=== PATIENT | male | born 1980 | race Hispanic/Latino ===

== ENCOUNTER 2017-01-07 09:52 | Day surgery (SDC) | payer MEDICAID ==
[2017-01-07] MEDS ORDERED: ANCEF/STERILE WATER 2 GM/20 ML IV NR (10:45)
[2017-01-07] MEDS ORDERED: NACL BACTERIOSTATIC INFILTRATI ONE (11:36)
--- NOTE | 2017-01-07 12:03 | Anesthesia Consultation ---
Anesthesia Consult and Med Hx - Airway Anesthetic Teeth Evaluation: Good ROM Head & Neck: Adequate Mental/Hyoid Distance: Inadequate Mallampati Class: Class III Intubation Access Assessment: Possibly Difficult - Pulmonary Exam CTA: Yes - Cardiac Exam Cardiac Exam: RRR - Pre-Operative Health Status ASA Pre-Surgery Classification: ASA3 Proposed Anesthetic Plan: General (GA no previous problems; ) - Pulmonary Hx Smoking: No Hx Sleep Apnea: No (SERGO PRE SCREEN HIGH RISK) - Cardiovascular System Hx Hypertension: No - Central Nervous System Hx Back Pain: Yes (FROM KIDNEY STONE) Hx Psychiatric Problems: Yes (autism; obsessive compulsive; migraines) - Other Systems Hx Cancer: No
--- NOTE | 2017-01-07 12:04 | Anesthesia Day of Surgery ---
Anesthesia Day of Surgery - Day of Surgery Patient Examined: Yes Patient H&P Reviewed: Yes Patient is NPO: Yes
[2017-01-07] MEDS ORDERED: PEPCID IV NR (12:08)
[2017-01-07] MEDS ORDERED: NACL 0.9% 1000 ML 1,000 ML IV SCH (12:08)
[2017-01-07] MEDS: VERSED IV NR ×2 (12:22→14:12)
[2017-01-07] MEDS ORDERED: DIPRIVAN 10 MG/ML IV ONE (13:25)
[2017-01-07] MEDS ORDERED: XYLOCAINE MPF 2% ONE (13:26)
[2017-01-07] MEDS ORDERED: DILAUDID ONE (13:26)
[2017-01-07] MEDS ORDERED: WATER FOR IRRIG STERILE IR ONE ×2 (14:11)
[2017-01-07] MEDS ORDERED: TORADOL ONE (14:45)
[2017-01-07] MEDS ORDERED: ZOFRAN ONE (14:45)
--- NOTE | 2017-01-07 15:50 | Short Stay Summary ---
Short Stay Documentation Date of service: 01/07/17 - History H&P: obtained from office - Allergies and Medications Current Medications: Allergies morphine Allergy (Verified 01/05/17 14:07) Headache tamsulosin HCl [From Flomax] Allergy (Verified 01/05/17 14:07) Swelling SWELLING OF FACE AND THROAT Home Medications Medication Instructions Recorded Confirmed Last Taken Type Oxycodone HCl/Acetaminophen 1 each PO Q4-6H PRN #20 tablet 02/03/15 01/07/1703/20 05:00 Rx [Percocet 10-325 mg] Cephalexin [Keflex] 500 mg PO Q6HR 01/05/17 01/07/17 01/06/17 History Ibuprofen [Motrin] 600 mg PO Q8H PRN 01/05/17 01/07/17 01/04/17 History Ondansetron [Zofran TAB] 4 mg PO PRN PRN 01/05/17 01/07/17 01/07/17 05:00 History Active Medications Cefazolin Sodium (Ancef/Sterile Water 2 Gm/20 Ml) 2 gm IV PREOP NR Stop: 01/07/17 23:59 Famotidine (Pepcid) 20 mg IV PREOP NR Stop: 01/07/17 23:59 Last Admin: 01/07/17 12:19 Dose: 20 mg Sodium Chloride (Nacl 0.9% 1000 Ml) 1,000 mls @ 100 mls/hr IV DIRECT LESLEE Stop: 01/07/17 23:59 Last Admin: 01/07/17 12:18 Dose: 100 mls/hr - Brief post op/procedure progress note Date of procedure: 01/07/17 Pre-op diagnosis: rimmght renal ston 10 Post-op diagnosis: same Procedure: cysto righ t 6x28 stent; right eswl Anesthesia: GETA Findings: good vis pushed back w/ stebt ti lp Surgeon: FABIANA MEDINA Estimated blood loss: minimal Pathology: none Specimen disposition: to lab Condition: stable - Hospital course Hospital course: or pacu home - Disposition Condition at discharge: Good Disposition: DISCHARGED TO HOME OR SELFCARE Short Stay Discharge Plan Activity: advance as tolerated Diet: advance as tolerated Follow up with: FABIANA MEDINA MD [Staff Physician] - 7 Days
--- NOTE | 2017-01-07 16:06 | Post Anesthesia Evaluation ---
- Post Anesthesia Evaluation Patient Participated: Yes Airway Patent: Yes Stable Respiratory Function: Yes Temp > 96.8F: Yes Pain Manageable: Yes Adequeate Hydration: Yes Anesthesia Complications: No Block Receding Appropriately: Not Applicable
[2017-01-07 16:47] VITALS: BP 149/74
--- NOTE | 2017-01-11 09:39 | Operative Report ---
PREOPERATIVE DIAGNOSIS: Right renal pelvis ureteropelvic junction stone approximately 10 mm. POSTOPERATIVE DIAGNOSIS: Right renal pelvis Ureteropelvic junction stone approximately 10 mm. PROCEDURE: Cystoscopy, right stent placement, and right renal ESWL. SURGEON: Yimi Rasheed MD. ANESTHESIA: General. SPECIMENS: None. ESTIMATED BLOOD LOSS: Minimal. COMPLICATIONS: None. FINDINGS: Good visualization of the stone. Mild decrease in density at the end of the procedure. CLINICAL INDICATIONS: The patient and family have been counseled by his primary urologist and questions answered by me on options for treatment. Additionally, counseled on monitoring the patient afterwards. The patient with a history autism. The patient saw mother and stated she is a nurse and RN. Discussed what is autism and monitoring him closely afterwards every 2 to 3 hours checking for temperature and any vitals or abnormalities she can call us immediately and follow up to the Emergency Room as needed for any fevers or any other vitals and abnormalities. She understood following up for the stent removal or additional procedures. DESCRIPTION OF PROCEDURE: The patient had antibiotics, SCDs, and was transferred to OR suite in supine position, anesthesia, dorsal lithotomy position, prepped and draped in standard fashion. At this point, a 22-Slovenian scope was passed. Cystoscopy demonstrated no tumors or lesions. Right stent was visualized. We only injected slight amount of contrast just up into the stone confirmed position right at the UPJ renal pelvis stone. Glidewire passed. Drainage noted from the right kidney with no significant signs of infection. No purulence. No significant debris. Appeared to be clear drainage from the right kidney. A 6 x 28 double-J stent was then passed over the wire under direct and fluoroscopic visualization. When the wire and string was removed, nice proximal and distal J. The stone was visualized and at this point, the patient was placed in the supine position. We began our shockwaves; total of 2500 shocks were delivered. This was done at 4.0 kilovolts for the majority of the procedure. Only towards the end, shocks were increased for about 100-200 shocks at 5.0 kilovolts, but the stone appeared ____ at that point and then was reduced immediately back to 4.0 kilovolts. A total of 2500 shocks. At the end of the procedure, there was moderate decreased density. The patient was awakened and transferred to the PACU in good and stable condition. PLAN: Stage future stent removal and possible future additional treatment for the stone. JOB# [id number] ATS/CIARA
== END 2017-01-07 18:01 | disposition home or self-care (01) ==
LOC: OR 09:52
PROVIDERS: ATTEND Urology
DX: N20.0 Calculus of kidney (principal); F84.0 Autistic disorder; F42.9 Obsessive-compulsive disorder, unspecified; M41.9 Scoliosis, unspecified; G43.909 Migraine, unspecified, not intractable, without status migrainosus; Z83.3 Family history of diabetes mellitus; Z82.3 Family history of stroke; Z82.0 Family history of epilepsy and other diseases of the nervous system; Z82.49 Family history of ischemic heart disease and other diseases of the circulatory system; Z83.49 Family history of other endocrine, nutritional and metabolic diseases; Z84.1 Family history of disorders of kidney and ureter; Z82.69 Family history of other diseases of the musculoskeletal system and connective tissue; Z80.0 Family history of malignant neoplasm of digestive organs; Z80.42 Family history of malignant neoplasm of prostate; Z84.2 Family history of other diseases of the genitourinary system
CPT/HCPCS: 50590; 52332; A4217; C1758; C1769; C2617; J0690; J1170; J1885; J2250; J2405; J2704; J7030

== ENCOUNTER 2017-02-04 07:47 | Day surgery (SDC) | payer MEDICAID ==
[2017-02-04] MEDS ORDERED: ANCEF/STERILE WATER 2 GM/20 ML IV NR (09:00)
[2017-02-04] MEDS ORDERED: DECADRON ONE (09:05)
[2017-02-04] MEDS ORDERED: XYLOCAINE MPF 2% ONE (09:05)
[2017-02-04] MEDS ORDERED: NACL BACTERIOSTATIC INFILTRATI ONE (09:05)
[2017-02-04] MEDS ORDERED: DIPRIVAN 10 MG/ML IV ONE (09:06)
[2017-02-04] MEDS ORDERED: SUBLIMAZE ONE (09:06)
--- NOTE | 2017-02-04 09:11 | Anesthesia Day of Surgery ---
Anesthesia Day of Surgery - Day of Surgery Patient Examined: Yes Patient H&P Reviewed: Yes Patient is NPO: Yes
--- NOTE | 2017-02-04 09:12 | Anesthesia Consultation ---
Anesthesia Consult and Med Hx Date of service: 02/04/17 - Airway Anesthetic Teeth Evaluation: Good ROM Head & Neck: Adequate Mental/Hyoid Distance: Inadequate Mallampati Class: Class IV Intubation Access Assessment: Possibly Difficult - Pulmonary Exam CTA: Yes - Cardiac Exam Cardiac Exam: RRR - Pre-Operative Health Status ASA Pre-Surgery Classification: ASA3 Proposed Anesthetic Plan: General - Pulmonary Hx Smoking: No Hx Sleep Apnea: No (SERGO PRE SCREEN HIGH RISK) - Cardiovascular System Hx Hypertension: No - Central Nervous System Hx Back Pain: Yes (FROM KIDNEY STONE) Hx Psychiatric Problems: Yes (high function autism, OCD, migraines) - Gastrointestinal Hx Gastroesophageal Reflux Disease: No - Endocrine Hx Renal Disease: Yes (kidney cysts and stones) Hx Insulin Dependent Diabetes: No - Hematic Hx Anemia: No Hx Sickle Cell Disease: No - Other Systems Hx Alcohol Use: No Hx Substance Use: No Hx Cancer: No Hx Obesity: Yes
[2017-02-04] MEDS ORDERED: NACL 0.9% 1000 ML 1,000 ML IV SCH (09:24)
[2017-02-04] MEDS ORDERED: PEPCID IV NR (09:25)
[2017-02-04] MEDS ORDERED: VERSED IV NR (09:25)
[2017-02-04] MEDS ORDERED: NEO SYNEPHRINE ONE (09:26)
--- NOTE | 2017-02-04 12:02 | Post Anesthesia Evaluation ---
- Post Anesthesia Evaluation Patient Participated: Yes Airway Patent: Yes Stable Respiratory Function: Yes Nausea/Vomiting: No Temp > 96.8F: Yes Pain Manageable: Yes Adequeate Hydration: Yes Anesthesia Complications: No Block Receding Appropriately: Not Applicable Patient on Ventilator: No
--- NOTE | 2017-02-04 12:19 | Short Stay Summary ---
Short Stay Documentation Date of service: 02/04/17 - History H&P: obtained from office - Allergies and Medications Current Medications: Allergies morphine Allergy (Verified 01/05/17 14:07) Headache tamsulosin HCl [From Flomax] Allergy (Verified 01/05/17 14:07) Swelling SWELLING OF FACE AND THROAT Home Medications Medication Instructions Recorded Confirmed Last Taken Type Oxycodone HCl/Acetaminophen 1 each PO Q4-6H PRN #20 tablet 02/03/15 02/04/1712/18 Rx [Percocet 10-325 mg] Ibuprofen [Motrin] 600 mg PO Q8H PRN 01/05/17 02/04/17 02/01/17 History Ondansetron [Zofran TAB] 4 mg PO PRN PRN 01/05/17 02/04/17 2 Weeks Ago History Active Medications Cefazolin Sodium (Ancef/Sterile Water 2 Gm/20 Ml) 2 gm IV PREOP NR Stop: 02/04/17 18:00 Sodium Chloride (Nacl 0.9% 1000 Ml) 1,000 mls @ 75 mls/hr IV DIRECT LESLEE Last Admin: 02/04/17 09:49 Dose: 75 mls/hr Midazolam HCl (Versed) 2 mg IV PREOP NR Stop: 02/04/17 23:59 Last Admin: 02/04/17 09:49 Dose: 2 mg - Brief post op/procedure progress note Date of procedure: 02/04/17 Pre-op diagnosis: Right renal stone Post-op diagnosis: same Procedure: right renal eswl Anesthesia: GETA Findings: good vis, seperation aft Surgeon: FABIANA MEDINA Estimated blood loss: none Pathology: none Condition: stable - Hospital course Hospital course: or pacu home - Disposition Condition at discharge: Good Disposition: DISCHARGED TO HOME OR SELFCARE Short Stay Discharge Plan Activity: advance as tolerated Follow up with: FABIANA MEDINA MD [Staff Physician] - 7 Days
[2017-02-04] MEDS ORDERED: TYLENOL PO PRN (12:34)
[2017-02-04 13:38] VITALS: BP 132/78
--- NOTE | 2017-02-04 18:22 | Admit Criteria Form ---
Admission Criteria Documentation: AMBULATORY SURGERY EXCEPTION CRITERIA Ambulatory Surgery Exception Criteria ( Place 'X' for any and all applicable criteria): Surgery or procedure performed on ambulatory basis may require inpatient stay for[A] ANY ONE of the following(1)(2)(3)(4)(5)(6)(7)(8)(9): [X] I. A preoperative situation, condition, or finding that warrants inpatient stay as indicated by ANY ONE of the following: [] a) Inpatient care needed because of severity of a disease or condition rather than the surgery (eg, severe cardiac or respiratory disease, severe infection) (15) (16 ) (17) (18) [] b) Emergent procedure (eg, angioplasty for acute ischemia)(19) [] c) Complex surgical approach or situation as indicated by ANY ONE of the following(3): [] i) Open approach needed instead of usual endoscopic, transcatheter, or other less invasive procedure [] ii) Difficult approach because of previous operation [] iii) Airway monitoring required after open neck procedures(20)(21) [] iv) Large mass requiring unusually extensive dissection [] v) Additional complicating feature requiring inpatient care (eg, drain management)(22(23): [X] d) Major surgery in a pt with high anesthetic risk as indicated by ANY ONE of the following (2)(3)(5)(7)(8): [X] i) ASA risk class III or higher (severe systemic disease impairing function) [D] [] ii) Advanced age (eg, older than 85 years)(14)(24) [] iii) Symptomatic heart failure(25) [] iv) Symptomatic asthma or COPD(8)(21) [] v) Morbid obesity with hemodynamic or respiratory problems(20)( 21)(26)(27) [] vi) Obstructive sleep apnea(20)(21) [] vii) Former premature infants who are younger than 60 weeks [] viii) High risk for severe postoperative abnormalities (eg, severe postoperative hypocalcemia after parathyroidectomy for severe hyperparathyroidism)(27)( 28) [] ix) Unstable angina(25) [] e) Drug-related risk requiring inpatient stay as indicated by ANY ONE of the following(5)(10)(14)(32)(33) [] i) Procedure requires discontinuing drugs or other therapy (eg , antiarrhythmic medication, antiseizure medication), which necessitates inpatient observation or treatment.(18)(31) [] ii) Major surgery and high risk drug use as indicated by ANY ONE of the following: [] 1) Active abuse of cocaine or similar drug [] 2) Monoamine oxidase inhibitor use [] 3) Other drug identified as posing risk [] f) Inadequate outpatient care situation as indicated by ANY ONE of the following(5)(10)(14)(32)(33) [] i) Patient lives remote from medical facility and procedure has urgent complication potential, and temporary nearby residence cannot be arranged [] ii) Patient will have postprocedure incapacitation and inadequate assistance at home, or alternative level of care cannot be arranged. [] iii) Patient will have long general anesthesia or procedure side effect resolution time, and competent person to stay with patient on first postoperative night at home or alternative level of care cannot be arranged. []iv) Other inadequate outpatient situation that cannot be handled by other means [] II. A perioperative event, condition, or finding that warrants inpatient stay as indicated by ANY ONE of the following (1)(2)(3): [] a) Inadequate physiologic recovery: cardiovascular, respiratory, or hemodynamic status not normal or near preoperative baseline(18) [] b) Hemodynamic instability [] c) Patient not alert with near normal or baseline mental status [] d) Temperature not normal or as expected and not appropriate for outpatient treatment of condition [] e) Ambulatory or appropriate activity level status not yet achieved post procedure [E](34)(35)(36) [] f) Operative site not appropriate (eg, unexpected or excessive drainage or bleeding) [] g) Postoperative effects not resolved or adequately managed (eg, significant pain or vomiting not appropriate for outpatient or next level of care)(10)(12) [] h) Complicating features requiring inpatient care as indicated by ANY ONE of the following(37): [] i) Severe complications of procedure (eg, bowel injury, airway compromise, vascular injury,severe hemorrhage) [] ii) Extensive (eg, dissection far beyond usual scope of procedure ) or prolonged (eg, 120 minutes beyond usual) surgery needed requiring inpatient postoperative care [] iii) Conversion to an open or complex procedure that requires inpatient care (eg, open vs laparoscopic cholecystectomy, abdominal vs vaginal hysterectomy)(38) [] iv) Comorbid condition or test result identified during or post procedure that requires inpatient care (7) [] v) Malignant hyperthermia(30) [] vi) Other complicating feature requiring inpatient care(22)(23) Inpatient stay may be needed until ALL of the following are present (1)(2)(3)(4) (5)(6)(10)(14)(33)(40): []a) Physiologic recovery: cardiovascular, respiratory, and hemodynamic status normal or near preoperative baseline []b) Hemodynamic stability []c) Patient alert, with near normal or baseline mental status []d) Temperature appropriate: patient afebrile or temperature appropriate for outpt treatment of condition []e) Activity level appropriate: ambulatory or appropriate activity level post procedure []f) Operative site appropriate as indicated by ALL of the following: []i) Site dry or with expected drainage []ii) Any blood noted is as expected for procedure. []g) Postoperative effects resolved or managed as indicated by ALL of the following: []i) Pain management appropriate for outpatient (or next level of) care(10) []ii) Minimal nausea and vomiting: if present, successfully treated with oral medication(12) []iii) Headache, dizziness, or drowsiness (if present) are mild. []h) Voiding status acceptable as indicated by ANY ONE of the following: []i) Voiding spontaneously []ii) No voiding but instructions given for follow-up in 6 to 8 hours []iii) Urinary catheter in place, and instructions given for follow-up []i) Complicating features requiring inpatient care manageable at a lower level of care(37) []j) Comorbid conditions manageable at a lower level of care(37) The original [employer] content created by [employer] has been revised. The portions of the content which have been revised are identified through the use of italic text or in bold, and [facility] [employer] has neither reviewed nor approved the modified material. All other unmodified content is copyright [employer]. Please see references footnoted in the original [employer] edition 2016 Admission Criteria Met: Yes
--- NOTE | 2017-02-07 23:32 | Operative Report ---
PREOPERATIVE DIAGNOSIS: Right renal stones. POSTOPERATIVE DIAGNOSIS: Right renal stones. PROCEDURE: Right renal ESWL. CLINICAL INDICATIONS: The patient has a stent in place. ANESTHESIA: General. FINDINGS: Good visualization of the stone adjacent to the stent and towards lower pole, there was good visualization and separation of stone procedure. SURGEON: Yimi Rasheed MD. ESTIMATED BLOOD LOSS: None. PATHOLOGY: None. CONDITION: Stable. CLINICAL INDICATIONS: Counseled RCBA, antibiotics, SCDs. The patient has a history of having a stent placed and ESWL. The patient is obese, making procedure difficult, I have counseled and wanted to proceed. DESCRIPTION OF PROCEDURE: The patient was transferred to the OR suite in supine position, anesthesia was begun, biplanar fluoroscopy was used to target of the stone with an F2. A total of 2500 shocks were delivered. Intermittent repositioning was done as necessary. At the end of the procedure, there was further spreading and separation of the stone likely fragments. The patient was awakened and transferred to the PACU in good and stable condition. JOB# [id number] ATS/NTS
== END 2017-02-04 13:15 | disposition home or self-care (01) ==
LOC: OR 07:47
PROVIDERS: ATTEND Urology
DX: N20.0 Calculus of kidney (principal); F42.9 Obsessive-compulsive disorder, unspecified; G43.909 Migraine, unspecified, not intractable, without status migrainosus; F84.0 Autistic disorder; E66.9 Obesity, unspecified; Z68.42 Body mass index [BMI] 45.0-49.9, adult; Z79.899 Other long term (current) drug therapy
CPT/HCPCS: 50590; J0690; J1100; J2250; J2590; J2704; J3010; J7030; J2370

== ENCOUNTER 2017-02-17 09:56 | Day surgery (SDC) | payer MEDICAID ==
[~2017-02-17 09:56] MED LIST: WATER FOR IRRIG STERILE IR ONE
--- NOTE | 2017-02-17 12:08 | Anesthesia Consultation ---
Anesthesia Consult and Med Hx Date of service: 02/17/17 - Airway Anesthetic Teeth Evaluation: Good ROM Head & Neck: Adequate Mental/Hyoid Distance: Adequate Mallampati Class: Class II Intubation Access Assessment: Probably Good - Pulmonary Exam CTA: Yes - Cardiac Exam Cardiac Exam: RRR - Pre-Operative Health Status ASA Pre-Surgery Classification: ASA2 Proposed Anesthetic Plan: General - Pulmonary Hx Smoking: No Hx Sleep Apnea: No (SERGO PRE SCREEN HIGH RISK) - Cardiovascular System Hx Hypertension: No - Central Nervous System Hx Back Pain: Yes (FROM KIDNEY STONE) Hx Psychiatric Problems: Yes (high function autism, OCD, migraines) - Gastrointestinal Hx Gastroesophageal Reflux Disease: No - Endocrine Hx Insulin Dependent Diabetes: No - Hematic Hx Anemia: No Hx Sickle Cell Disease: No - Other Systems Hx Alcohol Use: No Hx Substance Use: No Hx Cancer: No Hx Obesity: Yes
--- NOTE | 2017-02-17 12:08 | Anesthesia Day of Surgery ---
Anesthesia Day of Surgery - Day of Surgery Patient Examined: Yes Patient H&P Reviewed: Yes Patient is NPO: Yes
[2017-02-17] MEDS ORDERED: NACL BACTERIOSTATIC INFILTRATI ONE (12:36)
[2017-02-17] MEDS ORDERED: XYLOCAINE MPF 2% ONE (12:57)
[2017-02-17] MEDS ORDERED: SUBLIMAZE ONE ×2 (12:57→14:51)
[2017-02-17] MEDS ORDERED: DIPRIVAN 10 MG/ML IV ONE ×2 (12:57→14:35)
[2017-02-17] MEDS ORDERED: VERSED IV NR (13:00)
[2017-02-17] MEDS ORDERED: LACTATED RINGERS 1,000 ML IV SCH (13:00)
[2017-02-17] MEDS ORDERED: ANCEF/STERILE WATER 2 GM/20 ML IV NR (13:42)
--- NOTE | 2017-02-17 13:48 | Post Operative Note ---
Date of procedure: 02/17/17 Pre-op diagnosis: renal // ureteral stones Post-op diagnosis: same Findings: as above Procedure: cysto rpg stent exchange ureteroscopy laser Anesthesia: VAIBHAVA Surgeon: FRANCISCO TRONCOSO Estimated blood loss: none Pathology: none Condition: stable Disposition: PACU
--- NOTE | 2017-02-17 13:49 | Discharge Summary ---
Short Stay Discharge Plan Activity: other (no straining ) Weight Bearing Status: Full Weight Bearing Diet: low fat, low cholesterol, low salt Special Instructions: other (inc fluids ) Durable Medical Equipment Needed Upon Discharge: other (has stent .. needs f/u) Follow up with: PRIMARY CARE, [Primary Care Provider] - 7 Days FRANCISCO TRONCOSO MD [Staff Physician] - 7 Days
[2017-02-17] MEDS ORDERED: WATER FOR IRRIG STERILE IR ONE (14:09)
[2017-02-17] MEDS ORDERED: OMNIPAQUE 300 MG/50 ML (CATH LAB) IV ONE (14:10)
[2017-02-17] MEDS ORDERED: LASIX ONE (14:37)
[2017-02-17] MEDS ORDERED: ZOFRAN ONE (14:49)
--- NOTE | 2017-02-17 16:22 | Fluoroscopy Report ---
Retrograde pyelogram: The initial noncontrasted image demonstrates a right nephroureteral catheter. There is a question of an opaque density just above the pigtail in the kidney. There is also a focal density overlying the left renal region. The stent was removed with placement of wires and the laser into the renal pelvis. Contrast was injected mildly distended calyces. No filling defects identified. A right nephroureteral stent was left in place.
[2017-02-17 18:16] VITALS: BP 135/84
--- NOTE | 2017-02-17 20:34 | Operative Report ---
PREOPERATIVE DIAGNOSIS: Previous lithotripsy large stone, right upper ureter. POSTOPERATIVE DIAGNOSIS: Significant fragments, impacted in the upper ureter. PROCEDURE: Cystoscopy, right retrograde, insertion of 2 Glidewires, right laser of ureteral stone, followed it into the kidney with nephrostogram and double-J stent. SURGEON: Gregg Landa MD ANESTHESIA: General. FINDINGS: This is a gentleman who is mentally challenged, who had a large stone in the ureter, which was treated with lithotripsy. It was quite small, but this still significant size fragment. The options are removing the stent or trying to laser, we discussed. He now presents for laser. DESCRIPTION OF PROCEDURE: The patient brought to the operating room and placed on the operating table. Following induction of anesthesia, placed in lithotomy position, prepped and draped in usual sterile fashion. Cystourethroscopy showed the stent, which was brought out through the meatus. A wire coiled in the upper pole. Once we got the flexible ureteroscope up to the stone, we saw the stone was embedded it could not be moved. We placed a second wire through it with a double lumen ureteral catheter and flexible ureteroscopy, fragmented the stone into 2 pieces and both pieces were in the kidney. Pieces were in the upper pole. We were able to fragment them even smaller. The patient tolerated the procedure well. A double J 7-Burundian coiled in the kidney and bladder. The patient tolerated the procedure well. No significant complication. Family notified, brought to recovery in stable condition. JOB# [id number] JERRY/CIARA
== END 2017-02-17 16:42 | disposition home or self-care (01) ==
LOC: OR 09:56
PROVIDERS: ATTEND Urology
DX: N20.1 Calculus of ureter (principal); F79 Unspecified intellectual disabilities; F84.0 Autistic disorder; F42.9 Obsessive-compulsive disorder, unspecified; G43.909 Migraine, unspecified, not intractable, without status migrainosus; E66.9 Obesity, unspecified; Z68.41 Body mass index [BMI] 40.0-44.9, adult; Z88.8 Allergy status to other drugs, medicaments and biological substances
CPT/HCPCS: 52356; 74420; A4217; C1726; C1758; C1769; C2617; J0690; J1940; J2250; J2405; J2704; J3010; J7120; Q9967

== ENCOUNTER 2019-04-01 14:10 | Emergency (ER) | payer MEDICAID ==
[2019-04-01 14:56] VITALS: BP 129/79
--- NOTE | 2019-04-01 14:57 | Event Note ---
ED Screening Note Date of service: 04/01/19 Time: 14:54 ED Screening Note: 38 y/o male comes in for side flank pain. History of kidney stone 6 years ago. Having N/V started today. This initial assessment/diagnostic orders/clinical plan/treatment(s) is/are subject to change based on patients health status, clinical progression and re- assessment by fellow clinical providers in the ED. Further treatment and workup at subsequent clinical providers discretion. Patient/guardian urged not to elope from the ED as their condition may be serious if not clinically assessed and managed. Initial orders include:
[2019-04-01 15:48] LABS: Bilirubin,Urine NEG (Negative); Blood,Urine MOD (Negative); Color,Urine Yellow (Yellow); Mucus,Urine FEW /HPF; Protein,Urine <15 mg/dL mg/dL (Negative); Urobilinogen,Urine < 2.0 mg/dL (<2.0); WBC,Urine < 1.0 /HPF (0.0-6.0)
[2019-04-01] MEDS ORDERED: DILAUDID IM ONE (16:24)
[2019-04-01] MEDS ORDERED: ZOFRAN ODT PO ONE (16:24)
[2019-04-01] MEDS ORDERED: TORADOL IM ONE (16:24)
--- NOTE | 2019-04-01 16:30 | Emergency Department Report ---
ED Abdominal Pain HPI - General Chief Complaint: Abdominal Pain Stated Complaint: POSS KIDNEY STONE Time Seen by Provider: 04/01/19 16:23 Source: patient Mode of arrival: Ambulatory Limitations: No Limitations - History of Present Illness Initial Comments: sudden onset flank pain earlier today with n/v extensive stone hx, feels same MD Complaint: flank pain -: Sudden, hour(s) (6) Location: R flank Radiation: RLQ Severity: moderate Severity scale (0 -10): 6 Quality: stabbing, aching Consistency: constant Improves With: nothing Worsens With: nothing Associated Symptoms: nausea, vomiting - Related Data Home Medications Medication Instructions Recorded Confirmed Last Taken Ibuprofen [Motrin] 600 mg PO Q8H PRN 01/05/17 08/11/18 2 Weeks Ago ~07/28/18 Ondansetron [Zofran TAB] 4 mg PO PRN PRN 01/05/17 08/02/18 2 Weeks Ago ~07/28/18 Previous Rx's Medication Instructions Recorded Last Taken Type Ketorolac [Toradol] 10 mg PO Q6H PRN #20 tablet 04/01/19 Unknown Rx Promethazine [Phenergan] 25 mg PO Q6HR PRN #12 tab 04/01/19 Unknown Rx oxyCODONE /ACETAMINOPHEN [Percocet 1 tab PO Q6HR PRN #12 tab 04/01/19 Unknown Rx 5/325 mg] Allergies Allergy/AdvReac Type Severity Reaction Status Date / Time morphine Allergy Headache Verified 04/01/19 14:12 tamsulosin HCl [From Flomax] Allergy Swelling Verified 04/01/19 14:12 ED Review of Systems ROS: Stated complaint: POSS KIDNEY STONE Other details as noted in HPI Comment: All other systems reviewed and negative Gastrointestinal: as per HPI Genitourinary: as per HPI ED Past Medical Hx - Past Medical History Hx Hypertension: No Hx Sickle Cell Disease: No Hx Headaches / Migraines: Yes (MIGRAINES) Hx Kidney Stones: Yes Hx HIV: No - Social History Smoking Status: Never Smoker Substance Use Type: None - Medications Home Medications: Home Medications Medication Instructions Recorded Confirmed Last Taken Type Ibuprofen [Motrin] 600 mg PO Q8H PRN 01/05/17 08/11/18 2 Weeks Ago History ~07/28/18 Ondansetron [Zofran TAB] 4 mg PO PRN PRN 01/05/17 08/02/18 2 Weeks Ago History ~07/28/18 Ketorolac [Toradol] 10 mg PO Q6H PRN #20 tablet 04/01/19 Unknown Rx Promethazine [Phenergan] 25 mg PO Q6HR PRN #12 tab 04/01/19 Unknown Rx oxyCODONE /ACETAMINOPHEN [Percocet 1 tab PO Q6HR PRN #12 tab 04/01/19 Unknown Rx 5/325 mg] ED Physical Exam - General Limitations: No Limitations General appearance: alert, in no apparent distress - Head Head exam: Present: atraumatic, normocephalic - Eye Eye exam: Present: normal appearance - ENT ENT exam: Present: mucous membranes moist - Neck Neck exam: Present: normal inspection - Respiratory Respiratory exam: Present: normal lung sounds bilaterally. Absent: respiratory distress - Cardiovascular Cardiovascular Exam: Present: regular rate, normal rhythm. Absent: systolic murmur, diastolic murmur, rubs, gallop - GI/Abdominal GI/Abdominal exam: Present: soft, normal bowel sounds. Absent: distended, tenderness, guarding, rebound - Rectal Rectal exam: Present: deferred - Extremities Exam Extremities exam: Present: normal inspection - Back Exam Back exam: Present: normal inspection, CVA tenderness (R). Absent: CVA tenderness (L) - Neurological Exam Neurological exam: Present: alert, oriented X3 - Psychiatric Psychiatric exam: Present: normal affect, normal mood - Skin Skin exam: Present: warm, dry, intact, normal color. Absent: rash ED Course Vital Signs 04/01/19 04/01/19 14:52 16:49 Temperature 97.6 F Pulse Rate 87 Respiratory 20 18 Rate Blood Pressure 129/79 O2 Sat by Pulse 96 Oximetry ED Medical Decision Making - Radiology Data Radiology results: report reviewed, image reviewed 5 mm proximal R ureteral stone - Medical Decision Making R flank pain x 6 hours UA = hematuria CT = R ureteral stone, proximal given IM dilaudid, ketorolac, zofran - Differential Diagnosis stone, uti Critical care attestation.: If time is entered above; I have spent that time in minutes in the direct care of this critically ill patient, excluding procedure time. ED Disposition Clinical Impression: Ureteral stone Disposition: DC-01 TO HOME OR SELFCARE Is pt being admited?: No Condition: Stable Instructions: Renal Colic (ED) Prescriptions: oxyCODONE /ACETAMINOPHEN [Percocet 5/325 mg] 1 tab PO Q6HR PRN #12 tab PRN Reason: Pain Promethazine [Phenergan] 25 mg PO Q6HR PRN #12 tab PRN Reason: Nausea Ketorolac [Toradol] 10 mg PO Q6H PRN #20 tablet PRN Reason: Pain Referrals: [facility] MD JAZMIN [Primary Care Provider] - 3-5 Days FRANCISCO TRONCOSO MD [Staff Physician] - 3-5 Days Time of Disposition: 17:29
--- NOTE | 2019-04-01 16:55 | Cat Scan Report ---
EXAM: CT ABDOMEN PELVIS WO CON HISTORY: right flank pain TECHNIQUE: Spiral axial CT images are obtained through the abdomen and pelvis without the administrat ion of intravenous contrast. Additional coronal and sagittal reformatted images are reconstructed. DOSIMETRY: Total DLP 1759.09 mGycm; CTDI 31.45 mGy COMPARISON: None available. FINDINGS: GASTROINTESTINAL TRACT: There are no stigmata of bowel obstruction, colitis or diverticulitis. A norm al-appearing appendix is seen. GENITOURINARY SYSTEM: There is an approximately 5.4 mm obstructing stone in the proximal right ureter , at the level of the L2 transverse process, with low moderate hydronephrosis and mild perinephric st reaky interstitial fluid in keeping with congestive change; no urinoma is seen. There are multiple bi lateral nonobstructing renal calculi. An approximately 1.7 cm right middle pole renal cyst is seen. T he urinary bladder, seminal vesicles, prostate gland are grossly unremarkable for a non-dedicated exa m. CT ABDOMEN: The liver, spleen, pancreas, adrenal glands, gallbladder, aorta, and inferior vena cava a re within normal limits for a noncontrast CT scan. There is no intra-abdominal or retroperitoneal ly mphadenopathy, free fluid, or free air seen. No abdominal herniation is noted. CT PELVIS: The visualized bony structures are within normal limits. No pelvic sidewall or inguinal l ymphadenopathy is seen. No inguinal herniation is noted. No free fluid or free air is seen. LUNG BASES: The lung bases are clear. IMPRESSION: 1. Approximately 5.4 mm obstructing stone in the proximal right ureter, at the level of the L2 trans verse process, with low moderate hydronephrosis and mild perinephric streaky interstitial fluid in ke eping with congestive change; no urinoma is seen. 2. Multiple bilateral nonobstructing renal calculi. An approximately 1.7 cm right middle pole renal cyst is seen. 3. No evidence for acute appendicitis, bowel obstruction, colitis or diverticulitis seen. 4. No free fluid, free air, mass lesions, or lymphadenopathy seen. This document is electronically signed by Natasha Swanson MD., April 01 2019 04:54:00 PM ET
== END 2019-04-01 17:41 | disposition home or self-care (01) ==
LOC: ED 14:10
DX: N20.1 Calculus of ureter (principal); R11.2 Nausea with vomiting, unspecified; G43.909 Migraine, unspecified, not intractable, without status migrainosus; Z79.1 Long term (current) use of non-steroidal anti-inflammatories (NSAID); Z88.5 Allergy status to narcotic agent; Z88.8 Allergy status to other drugs, medicaments and biological substances
CPT/HCPCS: 74176; 81001; 96372; 99284; J1170; J1885; Q0162

== ENCOUNTER 2020-08-22 10:37 | Day surgery (SDC) | payer MEDICAID ==
--- NOTE | 2020-08-22 11:46 | Cat Scan Report ---
CT OF THE ABDOMEN AND PELVIS WITHOUT CONTRAST INDICATION / CLINICAL INFORMATION: Kidney stones. TECHNIQUE: All CT scans at this location are performed using CT dose reduction for ALARA by means of automated e xposure control. COMPARISON: 04/01/2019. FINDINGS: ABDOMEN: There is moderate left pelvocaliectasis and proximal ureterectasis. There is a 8 mm ovoid ca lculus in the left proximal ureter at the L2-3 level. There is a 2 mm calculus just above the obstruc ting calculus. There are also bilateral nonobstructive renal calculi, the largest of which measures a pproximately 1 cm and 1100 Hounsfield units in the left mid kidney. There is no evidence of a renal m ass. The liver demonstrates mild diffuse fatty infiltration without focal lesion. The gallbladder, bile du cts, pancreas, spleen, adrenal glands and bowel demonstrate no significant abnormality. No adenopathy is seen. The lung bases are clear. PELVIS: The distal ureters, urinary bladder and prostate gland are normal. A normal appendix is prese nt and there is no evidence of diverticulitis. No abnormal mass or fluid collection is seen. I do not identify a hernia. No acute osseous abnormality is seen. IMPRESSION: 1. 8 mm calculus in the proximal left ureter at the L2-3 level is causing moderate hydronephrosis. 2. Bilateral nephrolithiasis. Signer Name: Nathanael Viera MD Signed: 08/22/2020 11:41 AM Workstation Name: [id number]
[2020-08-22] MEDS ORDERED: ceFAZolin/Water 2 GM/20 ML 2 GM/20 ML SYRINGE IV NR (12:01)
[2020-08-22] MEDS ORDERED: LACTATED RINGERS 1,000 ML IV SCH (12:06)
--- NOTE | 2020-08-22 12:18 | Anesthesia Day of Surgery ---
Anesthesia Day of Surgery - Day of Surgery Patient Examined: Yes Patient H&P Reviewed: Yes Patient is NPO: Yes
--- NOTE | 2020-08-22 12:20 | Anesthesia Consultation ---
Anesthesia Consult and Med Hx Date of service: 08/22/20 - Airway Mallampati Class: Class IV Intubation Access Assessment: Possibly Difficult - Pre-Operative Health Status ASA Pre-Surgery Classification: ASA3 Proposed Anesthetic Plan: General - Pulmonary Hx Smoking: No Hx Sleep Apnea: No (SERGO PRE SCREEN HIGH RISK) - Cardiovascular System Hx Hypertension: No - Central Nervous System Hx Back Pain: Yes (FROM KIDNEY STONE. Scoliosis) Hx Psychiatric Problems: Yes (high function autism, OCD, migraines) - Gastrointestinal Hx Gastroesophageal Reflux Disease: No - Endocrine Hx Insulin Dependent Diabetes: No - Hematic Hx Anemia: No Hx Sickle Cell Disease: No - Other Systems Hx Alcohol Use: No Hx Substance Use: No Hx Cancer: No Hx Obesity: Yes
[2020-08-22] MEDS ORDERED: LIDOCAINE MPF (2%) 20 MG/1 ML VIAL 5 ML ONE (12:39)
[2020-08-22] MEDS ORDERED: propofoL 200 MG/20 ML VIAL IV ONE (12:39)
[2020-08-22] MEDS ORDERED: HYDROmorphone 1 MG/1 ML INJ ONE (12:39)
--- NOTE | 2020-08-22 13:55 | Post Operative Note ---
Date of procedure: 08/22/20 Pre-op diagnosis: l renal ureteral stones Post-op diagnosis: same Findings: as above Procedure: cysto rpg stone transposition eswl Anesthesia: SERA Surgeon: FRANCISCO TRONCOSO Estimated blood loss: none Pathology: none Condition: stable Disposition: PACU
--- NOTE | 2020-08-22 13:56 | Discharge Summary ---
Short Stay Discharge Plan Activity: other (no strainin g ) Weight Bearing Status: Full Weight Bearing Diet: low fat, low cholesterol, low salt Special Instructions: other (inc fluids ) Durable Medical Equipment Needed Upon Discharge: other (has j stent ) [facility] [Primary Care Provider] - 7 Days FRANCISCO TRONCOSO MD [Staff Physician] - 14 Days
[2020-08-22] MEDS ORDERED: WATER FOR IRRIG STERILE 2000 ML IR ONE (14:00)
[2020-08-22] MEDS ORDERED: ONDANSETRON 4 MG/2 ML INJ ONE (14:06)
[2020-08-22 15:05] VITALS: BP 152/63
--- NOTE | 2020-08-22 18:19 | Operative Report ---
PREOPERATIVE DIAGNOSES: Severe hydronephrosis, left kidney; left ureteropelvic junction stone; and left renal stone. POSTOPERATIVE DIAGNOSES: Severe hydronephrosis, left kidney; left ureteropelvic junction stone; and left renal stone. PROCEDURES: Cystoscopy, left stone manipulation, left retrograde, left ESWL. SURGEON: Dr. Landa. ANESTHESIA: General. FINDINGS: This is a gentleman who is severely obese and autistic and presented with left flank pain, has a stone in the upper ureter. DESCRIPTION OF PROCEDURE: The patient was brought to the operating room and placed on the operating table. Following induction of anesthesia, we tried to get the stone in both planes, but because of his size and the location, it was impossible. Cystoscopy was carried out, and we were able to transpose the left ureteral stone into the kidney. We placed a double-J. We then were able to blast it as much as possible, but it was very dense. It did not break up as well as possible. I suspect he will need followup procedures either ureteroscopy or percutaneous nephrolithotomy. The patient tolerated the procedure well and brought to recovery in stable condition. JOB# [id number] JERRY/CIARA
== END 2020-08-22 10:38 | disposition home or self-care (01) ==
LOC: CT 10:37 → OR 10:37 → CT 10:38
PROVIDERS: ATTEND Urology
DX: N13.2 Hydronephrosis with renal and ureteral calculous obstruction (principal); G43.909 Migraine, unspecified, not intractable, without status migrainosus; E66.9 Obesity, unspecified; Z88.5 Allergy status to narcotic agent; Z79.899 Other long term (current) drug therapy; Z88.8 Allergy status to other drugs, medicaments and biological substances; Z98.890 Other specified postprocedural states; Z68.41 Body mass index [BMI] 40.0-44.9, adult
CPT/HCPCS: 52330; 52332; 74176; A4217; C1758; C1769; C2617; J0690; J1170; J2405; J2704; J7120; Q9967

== ENCOUNTER 2020-10-11 09:00 | Outpatient (CLI) | payer MEDICAID ==
[2020-10-11 11:05] LABS: Basophils % (Auto) 0.4 % (0.0-1.8); Eosinophils # (Auto) 0.3 K/mm3 (0.0-0.4); Eosinophils % (Auto) 4.4 % (0.0-4.3); Hematocrit 43.2 % (35.5-45.6); Hemoglobin 14.7 gm/dl (11.8-15.2); Lymphocytes # (Auto) 1.7 K/mm3 (1.2-5.4); Lymphocytes % (Auto) 24.5 % (13.4-35.0); Mean Corpuscular HGB Conc 34 % (32-34); Mean Corpuscular Volume 90 fl (84-94); Monocytes # (Auto) 0.4 K/mm3 (0.0-0.8); Monocytes % (Auto) 5.8 % (0.0-7.3); Platelet Count 207 K/mm3 (140-440); Red Blood Count 4.78 M/mm3 (3.65-5.03); Red Cell Distribution Width 13.6 % (13.2-15.2)
[2020-10-11 11:27] LABS: Alanine Aminotransferase 19 units/L (7-56); Albumin 4.3 g/dL (3.9-5); BUN/Creatinine Ratio 14; Blood Urea Nitrogen 11 mg/dL (9-20); Calcium 9.2 mg/dL (8.4-10.2); Hemolysis Index 3
[2020-10-11 14:27] VITALS: BP 129/75
== END 2020-10-11 12:00 | disposition home or self-care (01) ==
LOC: LAB 09:00 → EDSTATUS 10-16 12:00
PROVIDERS: ATTEND Urology
DX: Z20.822 Contact with and (suspected) exposure to COVID-19 (principal); N20.0 Calculus of kidney
CPT/HCPCS: 36415; 80053; 85025; U0003

== ENCOUNTER 2020-10-15 06:23 | Day surgery (SDC) | payer MEDICAID ==
[2020-10-15] MEDS ORDERED: SODIUM CHLORIDE 0.9% 500 ML 500 ML ONE (08:20)
[2020-10-15 08:25] LABS: Basophils % (Auto) 0.7 % (0.0-1.8); Eosinophils # (Auto) 0.3 K/mm3 (0.0-0.4); Eosinophils % (Auto) 4.4 % (0.0-4.3); Hematocrit 39.7 % (35.5-45.6); Hemoglobin 14.1 gm/dl (11.8-15.2); Lymphocytes % (Auto) 28.9 % (13.4-35.0); Mean Corpuscular HGB Conc 36 % (32-34); Mean Corpuscular Volume 89 fl (84-94); Monocytes # (Auto) 0.5 K/mm3 (0.0-0.8); Monocytes % (Auto) 6.8 % (0.0-7.3); Platelet Count 205 K/mm3 (140-440); Red Blood Count 4.44 M/mm3 (3.65-5.03)
[2020-10-15 08:34] LABS: BUN/Creatinine Ratio 11; Blood Urea Nitrogen 10 mg/dL (9-20); Hemolysis Index 46
[2020-10-15 08:36] LABS: INR 1.02 (0.87-1.13)
[2020-10-15 08:43] VITALS: BP 126/67
[2020-10-15 09:00] LABS: Partial Thromboplastin Time 27.6 Sec. (24.2-36.6)
--- NOTE | 2020-10-15 09:01 | Short Stay Summary ---
Short Stay Documentation Date of service: 10/15/20 Narrative H&P: 39 year old male with renal stones, indwelling left ureteral stent, and autism who presents for PCNU for PCNL. CT obtained which demonstrated 3 calculi in the periphery of the left kidney. The previously visualized ureteral calculi has migrated. Patient also had some hematuria last night which may have been a stone passing. He is urinating without issue. Blood work is within normal limits. Discussed situation with Dr. Landa given the change in the imaging. Given the lack of a central stone or ureteral stone, his imaging is suboptimal for PCNU & PCNL. At this time, patient will follow-up and will have further ureteroscopic procedures done to remove the stones. - History Principal diagnosis: renal calculi Past Medical History: other (Autism, renal stones) Social history: other (Autistic) - Allergies and Medications Current Medications: Allergies morphine Allergy (Verified 04/01/19 14:12) Headache tamsulosin HCl [From Flomax] Allergy (Verified 04/01/19 14:12) Swelling SWELLING OF FACE AND THROAT Home Medications Medication Instructions Recorded Confirmed Last Taken Type Ibuprofen [Motrin] 600 mg PO Q8H PRN 01/05/17 10/09/20 08/18/20 History Promethazine [Phenergan] 25 mg PO Q6HR PRN #12 tab 04/01/19 10/09/20 08/08/20 Rx Active Medications Sodium Chloride (Sodium Chloride 0.9% 10 Ml Flush Syringe) 10 ml IV PRN LESLEE - Physical exam General appearance: no acute distress HEENT: EOMI Lungs: Normal air movement Heart: Regular rate Gastrointestinal: obese Neurological: Other (Does not respond much, autistic) - Hospital course Hospital course: Procedure canceled after noncontrast CT of the abdomen and pelvis performed. Patient's stone anatomy is suboptimal for PCNU for PCNL. Discussed with urologist who agrees. Patient can be discharged. - Disposition Condition at discharge: Stable Disposition: DC-01 TO HOME OR SELFCARE - Discharge Diagnoses (1) Renal stones Status: Acute Short Stay Discharge Plan Activity: advance as tolerated Weight Bearing Status: Weight Bear as Tolerated Diet: regular Follow up with: JIN KIRKLAND MD [Primary Care Provider] - 7 Days
--- NOTE | 2020-10-15 09:14 | Cat Scan Report ---
CT ABDOMEN AND PELVIS WITHOUT CONTRAST INDICATION / CLINICAL INFORMATION: RENAL STONE PROTOCOL!!!, Do study in prone position. TECHNIQUE: Axial CT images were obtained through the abdomen and pelvis without IV contrast. Sagittal and westfall l reformatted images. All CT scans at this location are performed using CT dose reduction for ALARA b y means of automated exposure control. COMPARISON: 08/22/2020 FINDINGS: LOWER CHEST: No significant abnormality. LIVER: No significant abnormality. GALLBLADDER: No significant abnormality. BILE DUCTS: No significant abnormality. PANCREAS: No significant abnormality. SPLEEN: No significant abnormality. ADRENALS: No significant abnormality. RIGHT KIDNEY and URETER: There are approximately 5 or 6 calyceal stones in the inferior right kidney appear unchanged. Ill-defined 1 cm cyst near mid pole is noted. No ureteral stones or hydronephrosis. LEFT KIDNEY and URETER: There are at least 3 large stones measuring up to 1 cm in the left kidney. A left ureteral stent has been placed since the previous exam which is in good position. Left hydroneph rosis has resolved. A proximal left ureteral stone has been removed since the previous exam. STOMACH and SMALL BOWEL: No significant abnormality. COLON: No significant abnormality. APPENDIX: No significant abnormality. PERITONEUM: No free fluid. No free air. No fluid collection. LYMPH NODES: No significant adenopathy. AORTA and ARTERIES: No significant abnormality. IVC and VEINS: No significant abnormality. URINARY BLADDER: No significant abnormality. REPRODUCTIVE ORGANS: No significant abnormality. ADDITIONAL FINDINGS: None. SKELETAL SYSTEM: No significant abnormality. IMPRESSION: Bilateral nephrolithiasis as described. Overall stable since 08/22/2020. Left ureteral stent has been placed since the previous exam which appears in good position. No hydron ephrosis. Signer Name: Zeus Zazueta Jr, MD Signed: 10/15/2020 9:10 AM Workstation Name: [id number]
== END 2020-10-15 06:24 | disposition home or self-care (01) ==
LOC: CATHLABREC 06:23
PROVIDERS: ATTEND Radiology Diagnostic Radiology
DX: N20.0 Calculus of kidney (principal); E66.9 Obesity, unspecified; G43.909 Migraine, unspecified, not intractable, without status migrainosus; Z53.8 Procedure and treatment not carried out for other reasons; Z88.5 Allergy status to narcotic agent; Z88.8 Allergy status to other drugs, medicaments and biological substances; Z79.899 Other long term (current) drug therapy; Z98.890 Other specified postprocedural states; Z68.42 Body mass index [BMI] 45.0-49.9, adult
CPT/HCPCS: 36415; 74176; 80048; 85025; 85610; 85730; J7040

== ENCOUNTER 2020-10-24 10:13 | Day surgery (SDC) | payer MEDICAID ==
[~2020-10-24 10:13] MED LIST changes: +LACTATED RINGERS 1,000 ML IV SCH; +MIDAZOLAM 10 MG/5 ML ORAL LIQD PO SCH; -WATER FOR IRRIG STERILE IR ONE
[2020-10-24] MEDS ORDERED: HYDROcodone/ACETAMINOPHEN 5-325 MG TAB PO PRN (11:07)
[2020-10-24] MEDS ORDERED: fentaNYL 100 MCG/2 ML INJ IV PRN (11:07)
--- NOTE | 2020-10-24 11:07 | Anesthesia Consultation ---
Anesthesia Consult and Med Hx Date of service: 10/24/20 - Airway Anesthetic Teeth Evaluation: Good ROM Head & Neck: Adequate Mental/Hyoid Distance: Inadequate Mallampati Class: Class III Intubation Access Assessment: Possibly Difficult (previous LMA 4) - Pulmonary Exam CTA: Yes - Cardiac Exam Cardiac Exam: RRR - Pre-Operative Health Status ASA Pre-Surgery Classification: ASA3 Proposed Anesthetic Plan: General - Pulmonary Hx Smoking: No Hx Respiratory Symptoms: No Hx Sleep Apnea: No (SERGO PRE SCREEN HIGH RISK) - Cardiovascular System Hx Hypertension: No - Central Nervous System CVA: No Hx Psychiatric Problems: Yes (autism, OCD) - Endocrine Hx Renal Disease: No Hx Liver Disease: No Hx Insulin Dependent Diabetes: No Hx Non-Insulin Dependent Diabetes: No Hx Thyroid Disease: No - Other Systems Hx Obesity: Yes (BMI 44) - Additional Comments Anesthesia Medical History Comments: Hx PDNV with most recent anesthetic.
--- NOTE | 2020-10-24 11:07 | Anesthesia Day of Surgery ---
Anesthesia Day of Surgery - Day of Surgery Patient Examined: Yes Patient H&P Reviewed: Yes Patient is NPO: Yes
[2020-10-24] MEDS ORDERED: MIDAZOLAM 2 MG/2 ML INJ IV NR (11:11)
[2020-10-24] MEDS ORDERED: SCOPOLAMINE TRANSDERMAL PATCH 72 HR TD NR (12:00)
[2020-10-24] MEDS ORDERED: ceFAZolin/STERILE WATER 2 GM/20 ML SYRINGE IV NR (12:00)
[2020-10-24] MEDS ORDERED: WATER FOR IRRIG STERILE 1,500 ML BOTTLE IR ONE (13:21)
[2020-10-24] MEDS ORDERED: LIDOCAINE MPF (2%) 20 MG/1 ML VIAL 5 ML ONE (13:21)
[2020-10-24] MEDS ORDERED: KETOROLAC 30 MG/1 ML INJ ONE (13:21)
[2020-10-24] MEDS ORDERED: ONDANSETRON 4 MG/2 ML INJ ONE (13:21)
[2020-10-24] MEDS ORDERED: WATER FOR IRRIG STERILE 2000 ML IR ONE (13:21)
[2020-10-24] MEDS ORDERED: fentaNYL 100 MCG/2 ML INJ ONE (13:21)
[2020-10-24] MEDS ORDERED: propofoL 200 MG/20 ML VIAL IV ONE (13:22)
--- NOTE | 2020-10-24 13:33 | Post Operative Note ---
Date of procedure: 10/24/20 Pre-op diagnosis: left stones Post-op diagnosis: same Findings: obesity stones Procedure: cysto stent ureteroscopy laser Anesthesia: SERA Surgeon: FRANCISCO TRONCOSO Estimated blood loss: none Pathology: none Condition: stable Disposition: PACU
--- NOTE | 2020-10-24 13:34 | Discharge Summary ---
Short Stay Discharge Plan Activity: other (no straining ) Weight Bearing Status: Full Weight Bearing Diet: low fat, low cholesterol, low salt Special Instructions: other (inc fluids ) Durable Medical Equipment Needed Upon Discharge: other (j stent ) Follow up with: [facility]E [facility] MD JAZMIN [Primary Care Provider] - 7 Days FRANCISCO TRONCOSO MD [Staff Physician] - 7 Days
[2020-10-24] MEDS ORDERED: IOHEXOL 300 MG/ML 50ML IV ONE (13:44)
--- NOTE | 2020-10-24 14:47 | Operative Report ---
PREOPERATIVE DIAGNOSES: Large left renal stones, previous ureteral stone, inability to place percutaneous nephrostomy for nephrolithotripsy. POSTOPERATIVE DIAGNOSES: Large left renal stones, previous ureteral stone, inability to place percutaneous nephrostomy for nephrolithotripsy. PROCEDURES: Cystoscopy, left ureteroscopy and nephroscopy with laser of 2 of the 3 stones. SURGEON: Dr. Landa. ANESTHESIA: General. FINDINGS: This is a gentleman who is autistic has suffered from stones. He had a large stone in the ureter, we placed it up and push it in the kidney with a double-J. He was going to have a percutaneous nephrolithotomy, but they could not get access in a safe fashion. He now presents to try from below. DESCRIPTION OF PROCEDURE: The patient was brought to the operating room and placed in the operating table. Following induction of anesthesia, prepped and draped in usual sterile fashion. It should be noted that lithotripsy does not work on him. He is morbidly obese, about 300+ pounds and lithotripsy does not work. Ureteroscopy and nephroscopy showed the stone in the upper ____ calyx and the middle calyx. They were anterior and this is a difficult angle, but we were able to get access and lasered them as best as possible. The upper one was pretty much gone, the mid one was at least half did lasered. A double-J coiled in the lower pole and in the bladder. The patient tolerated the procedure well. No significant complications. The plan will be probably second stage ureteroscopy and let see how he does. The one in the lower pole, I think is not going to be traveling much, it is in a little more of a narrowed infundibulum, but we wanted to try to treat and make sure the mid and the upper ones were well treated. Again, lithotripsy does not seem to work. We could try it again, but it is almost wasted anesthesia. He was brought to recovery room in stable condition. JOB# [id number] JERRY/CIARA
[2020-10-24 15:16] VITALS: BP 143/73
--- NOTE | 2020-10-24 15:17 | Fluoroscopy Report ---
Retrograde urography fluoroscopy INDICATION: Left flank pain IMPRESSION: Retrograde ureterogram of the left ureter was performed which demonstrated multiple filli ng defects within the left collecting system. A left double-J ureteral stent was placed. Fluoroscopy time: 58 seconds. Fluoroscopic images: 6. Signer Name: Shorty Thakkar MD Signed: 10/24/2020 3:13 PM Workstation Name: [id number]
--- NOTE | 2020-10-24 15:55 | Post Anesthesia Evaluation ---
- Post Anesthesia Evaluation Patient Participated: Yes Airway Patent: Yes Stable Respiratory Function: Yes Nausea/Vomiting: No Temp > 96.8F: Yes Pain Manageable: Yes Adequeate Hydration: Yes Anesthesia Complications: No
== END 2020-10-24 10:14 | disposition home or self-care (01) ==
LOC: OR 10:13
PROVIDERS: ATTEND Urology
DX: N20.2 Calculus of kidney with calculus of ureter (principal); G43.909 Migraine, unspecified, not intractable, without status migrainosus; E66.9 Obesity, unspecified; Z88.5 Allergy status to narcotic agent; Z68.41 Body mass index [BMI] 40.0-44.9, adult; Z88.8 Allergy status to other drugs, medicaments and biological substances
CPT/HCPCS: 52356; 74420; A4217; C1758; C1769; C2617; J0690; J1885; J2250; J2405; J2704; J3010; J7120; Q9967

== ENCOUNTER 2021-02-10 06:21 | Day surgery (SDC) | payer MEDICAID ==
[~2021-02-10 06:21] MED LIST changes: -MIDAZOLAM 10 MG/5 ML ORAL LIQD PO SCH; +MIDAZOLAM 2 MG/2 ML INJ IV NR; +SCOPOLAMINE TRANSDERMAL PATCH 72 HR TD NR
[2021-02-10] MEDS ORDERED: fentaNYL 100 MCG/2 ML INJ ONE ×2 (07:38→07:39)
[2021-02-10] MEDS ORDERED: LIDOCAINE PF 100 MG/5 ML (CARDIAC SYRINGE) IV ONE ×2 (07:38→07:40)
[2021-02-10] MEDS ORDERED: ONDANSETRON 4 MG/2 ML INJ ONE (07:38)
[2021-02-10] MEDS ORDERED: propofoL 200 MG/20 ML VIAL IV ONE ×2 (07:39)
[2021-02-10] MEDS ORDERED: LIDOCAINE MPF (2%) 20 MG/1 ML VIAL 5 ML ONE (07:40)
[2021-02-10] MEDS ORDERED: ceFAZolin/Water 2 GM/20 ML 2 GM/20 ML SYRINGE IV ONE (07:42)
--- NOTE | 2021-02-10 07:42 | Anesthesia Consultation ---
Anesthesia Consult and Med Hx Date of service: 02/10/21 - Airway Anesthetic Teeth Evaluation: Good ROM Head & Neck: Adequate Mental/Hyoid Distance: Adequate Mallampati Class: Class III Intubation Access Assessment: Possibly Difficult (previous LMA 4) - Pre-Operative Health Status ASA Pre-Surgery Classification: ASA3 Proposed Anesthetic Plan: General - Pulmonary Hx Smoking: No Hx Respiratory Symptoms: No Hx Sleep Apnea: No (SERGO PRE SCREEN HIGH RISK) - Cardiovascular System Hx Hypertension: No Hx Heart Attack/AMI: No - Central Nervous System CVA: No Hx Psychiatric Problems: Yes (autism, OCD, developmental delay) - Endocrine Hx Renal Disease: No Hx Liver Disease: No Hx Insulin Dependent Diabetes: No Hx Non-Insulin Dependent Diabetes: No Hx Thyroid Disease: No - Other Systems Hx Obesity: Yes (BMI 46) - Additional Comments Anesthesia Medical History Comments: Hx PONV which was improved with scopolamine patch after last surgery.
--- NOTE | 2021-02-10 07:43 | Anesthesia Day of Surgery ---
Anesthesia Day of Surgery - Day of Surgery Patient Examined: Yes Patient H&P Reviewed: Yes Patient is NPO: Yes
[2021-02-10] MEDS ORDERED: fentaNYL 100 MCG/2 ML INJ IV PRN (08:00)
[2021-02-10] MEDS ORDERED: HYDROcodone/ACETAMINOPHEN 5-325 MG TAB PO PRN (08:00)
[2021-02-10] MEDS ORDERED: ONDANSETRON 4 MG/2 ML INJ IV PRN (08:00)
[2021-02-10] MEDS ORDERED: ceFAZolin 1 GM VIAL ONE ×2 (08:26→08:39)
[2021-02-10] MEDS ORDERED: dexAMETHasone 20 MG/5 ML VIAL ONE (08:47)
[2021-02-10] MEDS ORDERED: IOHEXOL 300 MG/ML 50ML IV ONE (08:57)
--- NOTE | 2021-02-10 10:32 | Post Operative Note ---
Date of procedure: 02/10/21 Pre-op diagnosis: stones lk Post-op diagnosis: same Findings: as above Procedure: cysto stent x change laser ureteroscopy Anesthesia: GETA Surgeon: FRANCISCO TRONCOSO Estimated blood loss: none Pathology: none Condition: stable Disposition: PACU
--- NOTE | 2021-02-10 10:34 | Discharge Summary ---
Short Stay Discharge Plan Activity: other (no straining ) Weight Bearing Status: Full Weight Bearing Diet: low fat, low cholesterol, low salt, diabetic Special Instructions: other (stent care ) Durable Medical Equipment Needed Upon Discharge: other (j stent) Additional Instructions: INCREASE ORAL FLUIDS. AVOID STRAINING. DO NOT PULL THE STRING. REMOVE SCOPOLAMINE PATCH BEHIND RIGHT EAR IN 24-72 HOURS=USE GLOVES AND WASH HANDS. CALL FOR F/U APPT. Follow up with: JIN KIRKLAND MD [Primary Care Provider] - 7 Days Forms: [facility]patient [facility] Inst.
--- NOTE | 2021-02-10 10:49 | Operative Report ---
DATE OF SURGERY: 02/10/2021 PREOPERATIVE DIAGNOSIS: Large left renal stones. POSTOPERATIVE DIAGNOSIS: Large left renal stones with a UPJ stone. PROCEDURE PERFORMED: Cystoscopy, retrograde, left ureteroscopy, laser of large stone at the UPJ and in the renal pelvis and in the left upper pole. SURGEON: Dr. Landa. ANESTHESIA: General. INDICATIONS: This is a gentleman with a very large stone burden, most of the them in calices. He had hydro. He now presents for treatment. DESCRIPTION OF PROCEDURE: The patient was brought to the OR and placed on the operating table. Following induction of anesthesia, placed in lithotomy position, prepped and draped in the usual sterile fashion. The patient is very obese over 300 pounds and mildly autistic. We placed a wire through the stent that was withdrawn and we tried to get the ureteroscope into the kidney, but it met resistance at the UPJ. It looked like there was a stone there on the retrograde, so we placed 2 wires and using the double lumen, we were able to get that up into the renal pelvis and then the ureteroscope pushed the stone into the renal pelvis, which we blasted with the laser at 10 araya in the renal pelvis. We went to the upper pole. We blasted a stone there. The lower pole, we left alone. The patient tolerated the procedure well. A 7-Serbian double J coiled in the kidney and bladder. The patient tolerated the procedure well. No significant complication. We left the string. TID: [id number] RECEIPT: [id number] JERRY/TOLU
[2021-02-10 13:17] VITALS: BP 130/80
--- NOTE | 2021-02-10 14:37 | Fluoroscopy Report ---
6 fluoroscopic images submitted Indication: Intraoperative localization Impression: 6 images of the abdomen were submitted for documentation purposes with radiology involve ment. Patient underwent a left-sided retrograde mammogram with stent exchange. Approximately 10 mL o f Omnipaque 300 was utilized for this exam. Please refer to the operative note for complete details. Fluoroscopic time: 3 minutes and 33 seconds Signer Name: Vernon Menezes MD Signed: 02/10/2021 2:32 PM Workstation Name: [id number]
== END 2021-02-10 11:15 | disposition home or self-care (01) ==
LOC: OR 06:21
PROVIDERS: ATTEND Urology
DX: N20.0 Calculus of kidney (principal); G43.909 Migraine, unspecified, not intractable, without status migrainosus; E66.9 Obesity, unspecified; F41.9 Anxiety disorder, unspecified; Z20.822 Contact with and (suspected) exposure to COVID-19; Z88.5 Allergy status to narcotic agent; Z88.8 Allergy status to other drugs, medicaments and biological substances; Z98.890 Other specified postprocedural states; Z68.42 Body mass index [BMI] 45.0-49.9, adult
CPT/HCPCS: 52356; 74420; C1726; C1769; C2617; J0690; J1100; J2001; J2250; J2405; J2704; J3010; J7120; Q9967; U0003

== ENCOUNTER 2021-06-25 06:08 | Day surgery (SDC) | payer MEDICAID ==
[2021-06-25] MEDS ORDERED: LACTATED RINGERS 1,000 ML ONE (06:34)
[2021-06-25] MEDS ORDERED: BACTERIOSTATIC SODIUM CHLORIDE 0.9% 30 ML VIAL INFILTRATI ONE (06:34)
[2021-06-25] MEDS ORDERED: LACTATED RINGERS 1,000 ML IV SCH (06:45)
--- NOTE | 2021-06-25 07:20 | Anesthesia Day of Surgery ---
Anesthesia Day of Surgery - Day of Surgery Patient Examined: Yes Patient H&P Reviewed: Yes Patient is NPO: Yes
--- NOTE | 2021-06-25 07:21 | Anesthesia Consultation ---
Anesthesia Consult and Med Hx Date of service: 06/25/21 - Airway Anesthetic Teeth Evaluation: Good ROM Head & Neck: Adequate Mental/Hyoid Distance: Adequate Mallampati Class: Class III Intubation Access Assessment: Probably Good - Pre-Operative Health Status ASA Pre-Surgery Classification: ASA3 Proposed Anesthetic Plan: General ( ) - Pulmonary Hx Smoking: No Hx Respiratory Symptoms: No Hx Sleep Apnea: No (SERGO PRE SCREEN HIGH RISK) - Cardiovascular System Hx Hypertension: No Hx Heart Attack/AMI: No Hx Pacemaker: No Hx Internal Defibrillator: No Hx Heart Murmur: No - Central Nervous System Hx Seizures: No Hx Back Pain: Yes (FROM KIDNEY STONE) Hx Psychiatric Problems: Yes (autism, OCD, developmental delay) - Gastrointestinal Hx Gastroesophageal Reflux Disease: No - Endocrine Hx End Stage Renal Disease: No Hx Cirrhosis: No Hx Insulin Dependent Diabetes: No Hx Non-Insulin Dependent Diabetes: No Hx Thyroid Disease: No - Hematic Hx Anemia: No - Other Systems Hx Alcohol Use: No Hx Substance Use: No Hx Cancer: No Hx Obesity: Yes (BMI 46) - Additional Comments Anesthesia Medical History Comments: Last here [id number]. Hx PONV which was improved with scopolamine patch after last surgery. Mom present at bedside
[2021-06-25] MEDS ORDERED: propofoL 200 MG/20 ML VIAL IV ONE (07:39)
[2021-06-25] MEDS ORDERED: LIDOCAINE MPF (2%) 20 MG/1 ML VIAL 5 ML ONE (07:40)
[2021-06-25] MEDS ORDERED: SCOPOLAMINE TRANSDERMAL PATCH 72 HR TD NR (08:00)
[2021-06-25] MEDS ORDERED: WATER FOR IRRIG STERILE 2000 ML IR ONE (08:09)
[2021-06-25] MEDS ORDERED: dexAMETHasone 20 MG/5 ML VIAL ONE (08:10)
[2021-06-25] MEDS ORDERED: IOHEXOL 300 MG/ML 50ML IV ONE (08:12)
[2021-06-25] MEDS ORDERED: KETOROLAC 30 MG/1 ML INJ ONE (08:15)
[2021-06-25] MEDS ORDERED: HYDROmorphone 1 MG/1 ML INJ IV PRN ×2 (09:00)
[2021-06-25] MEDS ORDERED: ONDANSETRON 4 MG/2 ML INJ IV PRN (09:00)
--- NOTE | 2021-06-25 09:43 | Fluoroscopy Report ---
RETROGRADE UROGRAM 7 VIEWS 0817 INDICATION: CALCULUS OF LEFT URETER COMPARISON: 02/10/2021 FINDINGS: Previous left ureteral stent has been removed. Left nephrolithiasis is again noted to be pr ominent. Moderate right nephrolithiasis is again seen. Injection of both ureters was performed. 2 sma ll filling defects are seen in the distal left ureter overlying the mid sacrum at the site of densiti es on trigonometry tutor view consistent with small ureteral calculi. A wire was placed into the left renal collec ting system for guidance in double-J stent placement. Stent appears to be in satisfactory position at the end of the procedure. The ureteral calculi are no longer obvious. Signer Name: Adnres Pina MD Signed: 06/25/2021 9:38 AM Workstation Name: [email or web address]
[2021-06-25 10:09] VITALS: BP 143/85
--- NOTE | 2021-06-25 13:03 | Operative Report ---
DATE OF SURGERY: 06/25/2021 PREOPERATIVE DIAGNOSES: 1. Left ureteral stone and kidney stones. 2. Left hydronephrosis. POSTOPERATIVE DIAGNOSES: 1. Left ureteral stone and kidney stones. 2. Left hydronephrosis. PROCEDURES PERFORMED: 1. Cystoscopy, bilateral retrograde pyelograms. 2. Left ureteroscopy with laser lithotripsy and basket extraction of stone. 3. Insertion of left double-J ureteral stent. ATTENDING PHYSICIAN: Zia Antoine MD. TOOL ROOM ATTENDANT: None. ANESTHESIA: General. ESTIMATED BLOOD LOSS: 10 mL. DRAINS: A 6 x 26 left double-J stent. SPECIMENS: Left ureteral stone. COMPLICATIONS: None. INDICATIONS FOR PROCEDURE: The patient is a 40-year-old man with a known history of kidney stones. He has been treated by Dr. Landa extensively. After a stone procedure, he had left hydronephrosis with suggestion of left ureteral stone. He was brought to the operating room for ureteroscopy and stone extraction to relieve his obstruction. DESCRIPTION OF PROCEDURE IN DETAIL: After induction of suitable anesthesia and proper positioning and preparation in the dorsal lithotomy position, a cystoscope was used to enter the bladder under direct visualization. There were no bladder tumors seen. A right retrograde pyelogram was performed, which showed a normal right collecting system. Left retrograde pyelogram was then performed and contrast could not be passed the mid to distal ureter. It appeared that there was something blocking the stone. A wire was placed through an open-ended ureteral catheter into the kidney to secure access and ureteroscopy was performed. The rigid ureteroscope was advanced up to the mid and distal ureter and there were obvious stone fragments there that were obstructing the left collecting system. As we advanced further, there was a stone that was very impacted or tightly adherent or that would not allow passage of the scope. The ureter at this point was very narrow and it was very hard to do any manipulation on this stone. Regardless, we were able to use the laser on some of the other stone fragments that were large and break them up. A basket was used to retrieve the fragments that were created from the laser lithotripsy. We then advanced back up to the stone that was in the near part of the ureter that was tightly adherent to the wall. It started to bleed and there appeared to be a lot of edema. Furthermore, there was not much working space for the laser fiber. Because of this, a decision was made to remove all remaining stone fragments distally and to place a stent, to allow the ureter to passively dilate and heal up and hopefully, the stone will pass on its own. If not, then subsequent ureteroscopy should be easier because the ureter was passively dilated. At this point, a 6 x 26 double-J stent was then placed under fluoroscopic and cystoscopic guidance. There was a good curl proximally and distally. The bladder was then emptied and the cystoscope was removed. The patient was then awakened from anesthesia and transferred to recovery room in stable condition. He tolerated the procedure well. He should follow up with Dr. Landa in approximately 2 weeks. TID: [id number] RECEIPT: [id number] YVETTE/ANA/INDU
== END 2021-06-25 10:05 | disposition home or self-care (01) ==
LOC: OR 06:08
PROVIDERS: ATTEND Urology
DX: N13.2 Hydronephrosis with renal and ureteral calculous obstruction (principal); E66.9 Obesity, unspecified; F41.9 Anxiety disorder, unspecified; Z79.899 Other long term (current) drug therapy; Z98.890 Other specified postprocedural states; Z88.6 Allergy status to analgesic agent; Z88.8 Allergy status to other drugs, medicaments and biological substances; Z20.822 Contact with and (suspected) exposure to COVID-19
CPT/HCPCS: 36415; 52356; 74420; 82365; A4217; C1758; C1769; C2617; J0690; J1100; J1170; J1885; J2405; J2704; J7120; Q9967; U0003

== ENCOUNTER 2021-07-16 11:11 | Day surgery (SDC) | payer MEDICAID ==
[~2021-07-16 11:11] MED LIST changes: +WATER FOR IRRIG STERILE 1,500 ML BOTTLE IR ONE; +WATER FOR IRRIG STERILE 2000 ML IR ONE
[2021-07-16] MEDS ORDERED: HYDROmorphone 1 MG/1 ML INJ IV PRN (11:59)
--- NOTE | 2021-07-16 11:59 | Anesthesia Day of Surgery ---
Anesthesia Day of Surgery - Day of Surgery Patient Examined: Yes Patient H&P Reviewed: Yes Patient is NPO: Yes
--- NOTE | 2021-07-16 11:59 | Anesthesia Consultation ---
Anesthesia Consult and Med Hx Date of service: 07/16/21 - Airway Anesthetic Teeth Evaluation: Good ROM Head & Neck: Adequate Mental/Hyoid Distance: Adequate Mallampati Class: Class III Intubation Access Assessment: Possibly Difficult (previous LMA 4) - Pre-Operative Health Status ASA Pre-Surgery Classification: ASA3 Proposed Anesthetic Plan: General - Pulmonary Hx Smoking: No Hx Respiratory Symptoms: No Hx Sleep Apnea: No (SERGO PRE SCREEN HIGH RISK) - Cardiovascular System Hx Hypertension: No Hx Heart Attack/AMI: No - Central Nervous System CVA: No Hx Psychiatric Problems: Yes (autism, developmental delay) - Gastrointestinal Hx Gastroesophageal Reflux Disease: No - Endocrine Hx Renal Disease: No Hx Liver Disease: No Hx Insulin Dependent Diabetes: No Hx Non-Insulin Dependent Diabetes: No Hx Thyroid Disease: No - Other Systems Hx Obesity: Yes (BMI 46) - Additional Comments Anesthesia Medical History Comments: Hx mild PONV, improved with scop patch. Has had multiple anesthetics at [facility] under [place] without complications. Previous anesthesia record reviewed.
[2021-07-16] MEDS ORDERED: ONDANSETRON 4 MG/2 ML INJ IV PRN (12:30)
[2021-07-16] MEDS ORDERED: propofoL 200 MG/20 ML VIAL IV ONE (13:48)
[2021-07-16] MEDS ORDERED: MIDAZOLAM 2 MG/2 ML INJ ONE (13:48)
--- NOTE | 2021-07-16 14:03 | Post Operative Note ---
Date of procedure: 07/16/21 Pre-op diagnosis: left ureteral stones Post-op diagnosis: same Findings: as above prev stent Procedure: cysto ureteroscopy laser Anesthesia: GETA Surgeon: FRANCISCO TRONCOSO Estimated blood loss: none Pathology: none Condition: stable Disposition: PACU
--- NOTE | 2021-07-16 14:04 | Discharge Summary ---
Short Stay Discharge Plan Activity: other (no straining ) Weight Bearing Status: Full Weight Bearing Diet: low fat, low cholesterol Special Instructions: other (inc fluids ) Durable Medical Equipment Needed Upon Discharge: other (has j stent ) Follow up with: JUNE HUNTLEYOLD MONROE MD JAZMIN [Primary Care Provider] - 7 Days FRANCISCO TRONCOSO MD [Staff Physician] - 14 Days
[2021-07-16] MEDS ORDERED: dexAMETHasone 20 MG/5 ML VIAL ONE (15:04)
[2021-07-16] MEDS ORDERED: ONDANSETRON 4 MG/2 ML INJ ONE (15:04)
[2021-07-16] MEDS ORDERED: KETOROLAC 30 MG/1 ML INJ ONE (15:04)
--- NOTE | 2021-07-16 15:49 | Fluoroscopy Report ---
INTRAOPERATIVE FLUOROSCOPY: INDICATION / CLINICAL INFORMATION: STONE MANIPUATION. TECHNIQUE: Intraoperative spot images were obtained during the procedure. FINDINGS: Initial intraoperative image shows a double-J stent on the left stones in the left kidney and left ur eter. Subsequent images show contrast in requires ureteroscope. Lateral image shows small amount of residual stone debris in the mid ureter. There are stones in the lower pole the left kidney. There is a double-J stent. Fluoroscopy Time: 1 minute 52 seconds. Fluoroscopy Images: 8. Signer Name: Joe Prabhakar MD Signed: 07/16/2021 3:45 PM Workstation Name: [id number]
--- NOTE | 2021-07-16 16:28 | Operative Report ---
DATE OF SURGERY: 07/16/2021 PREOPERATIVE DIAGNOSIS: Two ureteral stones with left hydronephrosis and large stones in the left lower pole. POSTOPERATIVE DIAGNOSIS: Two ureteral stones with left hydronephrosis and large stones in the left lower pole. PROCEDURES: Cystoscopy, left retrograde, left ureteroscopy with laser of the 2 stones, one in the lower ureter, one in the mid ureter. FINDINGS: This is a gentleman who has really no pain, large stones and now he was found to have hydronephrosis with 2 stones in his ureter, quite large. He is over 300 pounds. DESCRIPTION OF PROCEDURE: The patient was brought to the operating room and placed on the operating table. Following induction of anesthesia, placed in lithotomy position, prepped and draped in the usual sterile fashion. The stent was withdrawn out the meatus and a wire coiled in the kidney. Initially, he was quite long, the wire went in the bladder. We had to reinsert a stent and a wire and then place the double lumen catheter. Placed 2 wires. Ureteroscopy revealed the lower stone, which was easily fragmented into about 4-5 pieces. The larger stone took some time, but we ended up fragmenting it into at least 10-15 pieces. The patient tolerated the procedure well. It was in the mid ureter. We did not extract any. We did not use a basket. There were still stones in the lower pole. A double-J 7-Danish coiled in the kidney and bladder. Brought to recovery in stable condition. TID: [id number] RECEIPT: JERRY/MARGUERITE
[2021-07-16 17:56] VITALS: BP 148/78
== END 2021-07-16 16:25 | disposition home or self-care (01) ==
LOC: OR 11:11
PROVIDERS: ATTEND Urology
DX: N13.2 Hydronephrosis with renal and ureteral calculous obstruction (principal); Z20.822 Contact with and (suspected) exposure to COVID-19; F84.0 Autistic disorder; E66.9 Obesity, unspecified; Z68.41 Body mass index [BMI] 40.0-44.9, adult; Z79.899 Other long term (current) drug therapy; Z88.6 Allergy status to analgesic agent; Z88.8 Allergy status to other drugs, medicaments and biological substances; Z98.890 Other specified postprocedural states
CPT/HCPCS: 52356; 74420; A4217; C1758; C1769; C2617; J0690; J1100; J1885; J2250; J2405; J2704; J7120; Q9967; U0003